=== PATIENT | male | born 1965 | race Caucasian/White ===

== ENCOUNTER 2017-01-20 13:31 | Emergency (ER) ==
[2017-01-20 13:42] VITALS: BP 145/78; TEMP 98; BMI 34.3
[2017-01-20] MEDS ORDERED: LIDOCAINE HCL 1% SDV SUBCUT STA (13:50)
[2017-01-20] MEDS ORDERED: BOOSTRIX IM ONE (13:50)
--- NOTE | 2017-01-20 13:52 | ED.PDOC ---
General ED Provider: Dr. KARLA COX JR Chief Complaint: Finger Laceration Stated Complaint: patient was unloading metal and cut left 2nd finger. [ End ] 2 hours ago 98.0 96 20 95% 145/78 Time Seen by Physician: 13:52 Mode of Arrival: Walk-In Information Source: Patient Exam Limitations: No limitations Nursing and Triage Documentation Reviewed and Agree: No Review of Systems - Review Of Systems Constitutional: Reports: No symptoms Eyes: Reports: No symptoms Ears, Nose, Mouth, Throat: Reports: No symptoms Respiratory: Reports: No symptoms Cardiac: Reports: No symptoms GI: Reports: No symptoms : Reports: No symptoms Musculoskeletal: Reports: No symptoms Skin: Reports: Lesions Neurological: Reports: No symptoms Endocrine: Reports: No symptoms Hematologic/Lymphatic: Reports: No symptoms All Other Systems: Other Past Medical History - Past Medical History Previously Healthy: Yes Endocrine: Reports: None Cardiovascular: Reports: None Respiratory: Reports: None Hematological: Reports: None Gastrointestinal: Reports: None Genitourinary: Reports: None Neuro/Psych: Reports: None Musculoskeletal: Reports: None Cancer: Reports: None - Surgical History General Surgical History: Reports: Unknown - Family History Family History: Reports: Unknown - Social History Smoking Status: Current every day smoker Hx Substance Use: No Alcohol Screening: Occasionally - Immunizations Tetanus Shot up to Date: No (thinks is due) Physical Exam - Physical Exam Appearance: Well-appearing Pain Distress: Mild Neck: Supple Respiratory: Airway patent Skin: Warm, Dry, Normal color (1cm lac dorso radialsurface over index prox phalanx no gaping no FB on exam- may heal by secondary intention) Psychiatric: Affect appropriate, Mood appropriate Critical Care Note - Critical Care Note Total Time (mins): 0 Course - Course Orders, Labs, Meds: Orders Category Date Time Status Diphth,Pertuss(Acell),Tet Vac [Boostrix] MEDS 01/20/17 13:50 Discontinued 0.5 ml IM .ONCE ONE Lidocaine HCl/Pf [Lidocaine HCl 1% Sdv] MEDS 01/20/17 13:50 Discontinued 5 ml SUBCUT ONCE STA Medications Discontinued Medications Generic Name Dose Route Start Last Admin Trade Name Freq PRN Reason Stop Dose Admin Diphtheria/Pertussis/Tetanus Vacc 0.5 ml 01/20/17 13:50 Boostrix IM 01/20/17 13:51 .ONCE ONE Lidocaine HCl 5 ml 01/20/17 13:50 Lidocaine Hcl 1% Sdv SUBCUT 01/20/17 13:51 ONCE STA Vital Signs: Temp Pulse Resp BP Pulse Ox 01/20/17 13:32 98.0 F 96 H 20 145/78 H 95 Departure - Departure Time of Disposition: 13:58 Disposition: HOME SELF-CARE Discharge Problem: Laceration of finger Instructions: Laceration Without Closure (ED) Condition: Good Pt referred to PMD for follow-up: Yes Additional Instructions: tetanus and pertussis shot today keep laceration clean and dry expect three weeks for complete healing return if red swollen tender or draining change bandage daily until smooth and dry Allergies/Adverse Reactions: Allergies No Known Allergies Allergy (Unverified 01/20/17 13:36) Home Medications: Ambulatory Orders 1 [No Reported Medications] 01/20/17
== END 2017-01-20 14:28 | disposition home or self-care (01) ==
LOC: ED 13:31
DX: S61.211A Laceration without foreign body of left index finger without damage to nail, initial encounter (principal); W26.8XXA Contact with other sharp object(s), not elsewhere classified, initial encounter; F17.210 Nicotine dependence, cigarettes, uncomplicated
CPT/HCPCS: 90471; 90715; 99283